=== PATIENT | female | born 1965 | race Caucasian/White ===

== ENCOUNTER 2016-11-27 14:54 | Emergency (ER) | payer BC ==
[~2016-11-27] VITALS: Ht 162.6 cm; Wt 153.2 kg
[2016-11-27 15:03] VITALS: TEMP 36.6; O2SAT 97; Ht 162.6 cm; Wt 153.2 kg
[2016-11-27] MEDS ORDERED: METO25TA3 PO (15:17)
[2016-11-27] MEDS ORDERED: IBUP-1050 PO (15:17)
[2016-11-27] MEDS ORDERED: LEVO75TA PO (15:17)
[2016-11-27] MEDS ORDERED: LORA-741 PO (15:17)
[2016-11-27] MEDS ORDERED: ASPI325T39 PO (15:17)
[2016-11-27 15:29] LABS: COMPLETE YES; EOS % 1.4 %; HEMATOCRIT 40.4 % (37-47); IG% 0.2 %; LYMPH % 13.5 %; LYMPH ABS # 1.45 K/uL (1.2-3.4); MEAN CELL VOLUME 84.3 fL (80-100); MEAN CORPUSCULAR HGB CONC 33.2 g/dl (32-36); MEAN PLATELET VOLUME 9.5 fL (7.4-10.4); MONO % 9.4 %; NEUT % 75.5 %; PLATELET COUNT 276 K/uL (130-400); RED BLOOD COUNT 4.79 M/uL (4.2-5.4); WHITE BLOOD COUNT 10.71 K/uL (4.8-10.8)
[2016-11-27 15:51] LABS: BUN/CREATININE RATIO 22.4 (10-20); CALCIUM 8.5 mg/dl (8.5-10.1); CREATININE 0.55 mg/dl (0.60-1.20)
[2016-11-27 15:54] LABS: ALB/GLOB RATIO 0.8 (0.9-2)
[2016-11-27 15:55] LABS: PARTIAL THROMBOPLASTIN RATIO 1.1; PROTHROMBIN TIME (PATIENT) 10.5 SECONDS (9.0-12.0)
--- NOTE | 2016-11-27 16:22 | EMERGENCY ROOM VISIT NOTE ---
History First contact with patient: 15:07 Chief Complaint: LEG PAIN,LEG INJURY Stated Complaint: SEVERE LEG PAIN, UNABLE TO BEAR WEIGHT History of Present Illness The patient is a 51 year old female who presents to the Emergency Room with complaints of right leg pain which began 3 days ago. The patient reports that she had a dull aching sensation 3 days ago. She has previously gone on a walk with a friend and thought that maybe she pulled a muscle. Over the last 3 days , the pain has worsened and she is now having difficulty bearing weight due to the pain. She rates the discomfort a 5/10 and states it is located in the right calf. It radiates up into the back of the knee. She denies any redness or swelling of the leg. The patient denies any history or family history of blood clots. She states that she had a 19 hour train ride 6 days ago. She does not smoke or take hormonal control pills or hormone replacement. Denies numbness or weakness. Denies chest pain or shortness breath. Review of Systems A complete 10 point review of systems was reviewed with the patient with pertinent positives and negatives as per history of present illness. All else were negative. Social History Smoking Status: Never Smoker Current/Historical Medications Scheduled Aspirin (Aspirin Ec), 650 MG PO PRN Levothyroxine Sodium (Synthroid), 75 MCG PO DAILY Lorazepam (Ativan), 0.5 MG PO PRN UD Metoprolol Succinate (Toprol Xl), 25 MG PO DAILY Scheduled PRN Hydrocodone/Acetaminophen 5MG/325MG (Leadore 5MG/325MG), 1-2 TABLET PO Q4H PRN for Pain Ibuprofen (Advil), 800 MG PO TID PRN for Pain Allergies Uncoded Allergies: DURAPORE TAPE (Allergy, Severe, RED WELTS, 11/27/16) Physical Exam Vital Signs Date Time Temp Pulse Resp B/P Pulse Ox O2 Delivery O2 Flow Rate FiO2 11/27/16 16:58 58 143/80 Room Air 11/27/16 15:03 36.6 64 20 168/90 97 Room Air Physical Exam VITALS: Vitals are noted on the nurse's note and reviewed by myself. Vital signs stable. GENERAL: This is a 51-year-old female, in no acute distress, nondiaphoretic, well-developed well-nourished. HEART: Regular rate and rhythm without murmurs gallops or rubs. LUNGS: Clear to auscultation bilaterally without wheezes, rales or rhonchi. MUSCULOSKELETAL: There is no erythema or swelling of the right leg. There is tenderness to palpation of the right calf. NEURO: Patient was alert and oriented to person place and time. Normal sensation to light and sharp touch. Medical Decision & Procedures ER Provider Diagnostic Interpretation: Venous Doppler right leg RIGHT VENOUS DOPP LOWER EXT UNILAT CLINICAL HISTORY: right calf pain Right pain. Edema. TECHNIQUE: Venous Doppler COMPARISON STUDY: None FINDINGS: Normal study IMPRESSION: Normal study Laboratory Results 11/27/16 15:20 Red Blood Count 4.79, Mean Corpuscular Volume 84.3, Mean Corpuscular Hemoglobin 28.0, Mean Corpuscular Hemoglobin Concent 33.2, Mean Platelet Volume 9.5, Neutrophils (%) (Auto) 75.5, Lymphocytes (%) (Auto) 13.5, Monocytes (%) (Auto) 9.4, Eosinophils (%) (Auto) 1.4, Basophils (%) (Auto) 0.0, Neutrophils # (Auto) 8.08, Lymphocytes # (Auto) 1.45, Monocytes # (Auto) 1.01, Eosinophils # (Auto) 0.15, Basophils # (Auto) 0.00 11/27/16 15:20 Test 11/27/16 15:20 White Blood Count 10.71 K/uL (4.8-10.8) Red Blood Count 4.79 M/uL (4.2-5.4) Hemoglobin 13.4 g/dL (12.0-16.0) Hematocrit 40.4 % (37-47) Mean Corpuscular Volume 84.3 fL (80-100) Mean Corpuscular Hemoglobin 28.0 pg (25-34) Mean Corpuscular Hemoglobin Concent 33.2 g/dl (32-36) Platelet Count 276 K/uL (130-400) Mean Platelet Volume 9.5 fL (7.4-10.4) Neutrophils (%) (Auto) 75.5 % Lymphocytes (%) (Auto) 13.5 % Monocytes (%) (Auto) 9.4 % Eosinophils (%) (Auto) 1.4 % Basophils (%) (Auto) 0.0 % Neutrophils # (Auto) 8.08 K/uL (1.4-6.5) Lymphocytes # (Auto) 1.45 K/uL (1.2-3.4) Monocytes # (Auto) 1.01 K/uL (0.11-0.59) Eosinophils # (Auto) 0.15 K/uL (0-0.5) Basophils # (Auto) 0.00 K/uL (0-0.2) RDW Standard Deviation 45.8 fL (36.4-46.3) RDW Coefficient of Variation 14.8 % (11.5-14.5) Immature Granulocyte % (Auto) 0.2 % Immature Granulocyte # (Auto) 0.02 K/uL (0.00-0.02) Prothrombin Time 10.5 SECONDS (9.0-12.0) Prothromb Time International Ratio 1.0 (0.9-1.1) Activated Partial Thromboplast Time 28.7 SECONDS (21.0-31.0) Partial Thromboplastin Ratio 1.1 Anion Gap 6.0 mmol/L (3-11) Est Creatinine Clear Calc Drug Dose 179.8 ml/min Estimated GFR () 125.9 Estimated GFR (Non- 108.6 BUN/Creatinine Ratio 22.4 (10-20) Calcium Level 8.5 mg/dl (8.5-10.1) Total Bilirubin 0.4 mg/dl (0.2-1) Aspartate Amino Transf (AST/SGOT) 11 U/L (15-37) Alanine Aminotransferase (ALT/SGPT) 21 U/L (12-78) Alkaline Phosphatase 101 U/L (45-117) Total Protein 7.5 gm/dl (6.4-8.2) Albumin 3.4 gm/dl (3.4-5.0) Globulin 4.1 gm/dl (2.5-4.0) Albumin/Globulin Ratio 0.8 (0.9-2) Medical Decision Differential diagnosis includes DVT, superficial thrombosis, muscular strain, cellulitis, among others. The patient was evaluated as above. She complains of right leg pain with no injury. Ultrasound of the right leg was performed and read by radiology with no DVT. I am unsure of the exact cause of the patient's leg pain, but she does admit to being more active than usual prior to the onset of the pain. Conservative measures were discussed with the patient and she was instructed to follow-up with her primary care provider for further evaluation of her symptoms. She should return here for any worsening or new/concerning symptoms. She verbalized understanding of my assessment and treatment plan and was discharged home in good condition. Impression Primary Impression: Leg pain, right Departure Information Dispostion Home / Self-Care Condition GOOD Prescriptions Hydrocodone/Acetaminophen 5MG/325MG (Leadore 5MG/325MG) Tab 1-2 TABLET PO Q4H Y for Pain, #15 TAB For Initial Treatment Prov: Unique Arevalo ., LIANG 11/27/16 Referrals No Doctor, Assigned (PCP) Patient Instructions My [facility] Additional Instructions You have been prescribed Leadore to be used for pain control. Take 1-2 tablets every 4-6 hours as needed for pain. This is a narcotic medication. You cannot drive or consume alcohol while on this medicine. This medicine should only be used for pain that cannot be controlled with [id number] pain medicines. For pain control, you can use the following [id number] medicines (if >12 yo): - Regular strength (325mg/tab) Tylenol (acetaminophen) 2 tabs every 4-6 hours as needed. Do not exceed 12 tablets in a 24 hour period. Avoid taking more than 4 grams (4000 mg) of Tylenol per day. This includes any other sources of acetaminophen you may take on a regular basis. - Regular strength (200 mg/tab) Advil (ibuprofen) 1-2 tabs every 4-6 hours as needed. Do not exceed a dose of 3200 mg per day. Follow-up with your primary care provider this week for further evaluation.
--- NOTE | 2016-11-27 16:30 | DIAGNOSTIC IMAGING REPORT ---
Venous Doppler right leg RIGHT VENOUS DOPP LOWER EXT UNILAT CLINICAL HISTORY: right calf pain Right pain. Edema. TECHNIQUE: Venous Doppler COMPARISON STUDY: None FINDINGS: Normal study IMPRESSION: Normal study Electronically signed by: Misael Busch M.D. 11/27/2016 4:29 PM Dictated Date/Time: 11/27/2016 4:27 PM
[2016-11-27 16:58] VITALS: BP 143/80; PULSE 58
[2016-11-27] MEDS ORDERED: HYDR-5688 PO (17:23)
== END 2016-11-27 17:30 | disposition home or self-care (01) ==
LOC: C.EDB 14:56 → C.EDD 17:30
DX: M79.604 Pain in right leg (principal); Z79.899 Other long term (current) drug therapy; Z88.8 Allergy status to other drugs, medicaments and biological substances